=== PATIENT | male | born 1945 | race Caucasian/White ===

== ENCOUNTER 2016-06-30 13:37 | Day surgery (SDC) | payer MEDICARE, BC ==
[2016-06-29 08:24] VITALS: BMI 22.8
[~2016-06-30 13:37] MED LIST: LACTATED RINGERS 1,000 ML IV SCH; SODIUM CHLORIDE 0.9% 1,000 ML IV SCH
[2016-06-30 14:55] LABS: Basophils % (A) 0 %; CH 34.3; CHCM 33.9; Eosinophils # (A) 0.1 k/uL (0-0.7); Eosinophils % (A) 2 %; HCT 41.2 % (39.0-53.0); HDW 2.05; HGB 13.9 gm/dL (13.0-17.5); Luc # (Auto) 0.16; Luc % (Auto) 3; Lymphocytes # (A) 1.5 k/uL (1.0-4.8); Lymphocytes % (A) 26 %; MCH 34.3 pg (25.0-35.0); MCHC 33.8 g/dL (31.0-37.0); MCV 101.5 fL (80.0-100.0); Mean Platelet Volume 9.5; Monocytes # (A) 0.3 k/uL (0-1.0); Monocytes % (A) 6 %; Neutrophils # (A) 3.7 k/uL (1.3-7.7); Neutrophils % (A) 64 %; RBC 4.06 m/uL (4.30-5.90); RDW 12.5 % (11.5-15.5); WBC 5.8 k/uL (3.8-10.6)
[2016-06-30 15:14] LABS: Anion Gap 7 mmol/L; Blood Urea Nitrogen 19 mg/dL (9-20); Calcium 9.4 mg/dL (8.4-10.2); Carbon Dioxide 27 mmol/L (22-30); Chloride 105 mmol/L (98-107); Glucose 87 mg/dL (74-99); Non-African American GFR(MDRD) >60 (>60 ml/min/1.73 sqM); Potassium 4.4 mmol/L (3.5-5.1); Sodium 139 mmol/L (137-145)
[2016-06-30] MEDS ORDERED: fentaNYL (PF) 50 MCG/ML 2 ML AMP ONE (16:16)
[2016-06-30] MEDS ORDERED: GLYCOPYRROLATE 0.2 MG/ML 2 ML VIAL ONE (16:16)
[2016-06-30] MEDS ORDERED: PROPOFOL 10 MG/ML 20 ML VIAL IV ONE (16:16)
[2016-06-30] MEDS ORDERED: ePHEDrine 50 MG/ML 1 ML AMP ONE (16:16)
[2016-06-30] MEDS ORDERED: NEOSTIGMINE 1 MG/ML 10 ML VIAL ONE (16:16)
[2016-06-30] MEDS ORDERED: MIDAZOLAM 2 MG/2 ML VIAL ONE (16:16)
[2016-06-30] MEDS ORDERED: SUCCINYLCHOLINE CHLORIDE 100 MG/5 ML SYR IV ONE (16:16)
[2016-06-30] MEDS ORDERED: ROCURONIUM BROMIDE 10 MG/ML 10 ML VIAL IV ONE (16:16)
[2016-06-30] MEDS ORDERED: ISOPROTERENOL 250 MCG/1.25 ML SYR IV ONE (16:16)
[2016-06-30] MEDS ORDERED: HEPARIN SODIUM (1,000 UNIT/ML) 1,000 UNIT in SODIUM CHLORIDE 0.9% 1,000 ML IRRIGATION ONE (16:34)
[2016-06-30] MEDS ORDERED: LIDOCAINE 2% INJ 20 MG/ML SQ ONE (16:37)
[2016-06-30] MEDS ORDERED: SODIUM CHLORIDE 0.9% 1,000 ML IV ONE (19:02)
[2016-06-30] MEDS ORDERED: ACETAMINOPHEN TAB 325 MG TAB PO PRN (19:09)
[2016-06-30] MEDS ORDERED: HYDROcodone/APAP 5-325MG 1 EACH TAB PO PRN (19:09)
[2016-06-30] MEDS ORDERED: LACTATED RINGERS 1,000 ML IV ONE (19:33)
--- NOTE | 2016-06-30 19:48 | LTR ---
June 30, 2016 RE: Fredy Street Dear Dr. Linder: I had the pleasure of seeing Mr. Fredy Street in electrophysiology follow-up. Fredy underwent successful atrial flutter ablation for symptomatic atrial flutter with RVR. A complete line of block was made with an excellent result. Isthmus conduction time was greater than 185 ms. He will be monitored overnight on telemetry and then be discharged tomorrow and will follow as scheduled. I have asked him to continue with Vanessa for now. Thank you for entrusting me with the care of your patient. Warm regards. Sincerely, HILDA WISE MD
--- NOTE | 2016-06-30 19:52 | PCN ---
DATE OF PROCEDURE: This is a 71-year-old male patient who was admitted with symptomatic atrial flutter with RVR. He was brought in for an atrial flutter ablation procedure. Patient was brought to the EP lab in a fasting state. Written informed consent was obtained prior to the procedure. The procedure was performed under general anesthesia because he has sleep apnea and catheter stability was an issue. The right and left groins were prepped and draped as per protocol. Lidocaine 1% was used for local anesthesia. A venous sheath was placed in the right femoral vein and 2 venous sheaths in the left femoral vein. Via these, diagnostic catheters were placed in the coronary sinus, high right atrium and the His bundle area, and later in the RV. Subsequently a long sheath and a mapping ablation catheter were placed. Sinus cycle length 945 ms, SD interval 131 ms, QRS 104 ms, QT 457 ms, AH 58 ms, HV interval 41 ms. Sinus node recovery times at 600, 500 and 400 ms were 1538, 1153 and 1441 ms. Corresponding corrected sinus node recovery times were within normal limits. AV node Wenckebach block from the high right atrium was 350 ms. No slow pathway conduction. No delta waves. Pacing from the coronary sinus revealed an AV node Wenckebach block cycle length of 340 ms. Isuprel was started wide open. VA Wenckebach block 340 ms. Retrograde conduction in midline and ( ). Atrial extrastimulation was performed from the coronary sinus and from the high right atrium. No ST-T waves reduced. No arrhythmias induced. Three-D electroanatomic mapping of the right atrial isthmus was performed. Intracardiac echocardiography revealed no intracardiac masses in the right and left atria or in the appendages. The isthmus was identified and 3-D mapping of the isthmus was performed. This isthmus had a mid isthmus pedicle which was very thick and almost pedunculated. In addition to this, the eustachian ridge was thick, curled, and had a very narrow but definite subeustachian pouch. Three-D mapping was followed by RF ablation. An RF line of block was made from the tricuspid annulus to the eustachian ridge. The mid isthmus pedicle was ablated. The pouch was also ablated. When the area of the ridge was ablated, there was a jump in the isthmus conduction time to almost 180 to 190 ms. Complete anatomic line of block was made. This was interrogated with differential pacing and with activation mapping as well as with mapping along the RF line. Complete line of block was demonstrated. The isthmus conduction time was greater than 180 to 185 ms in both directions. The anatomic line was complete in 100% grid without any anatomic gaps. Patient tolerated the procedure well without any acute complications. He was extubated and sent to Telemetry. PLAN: Continue Savaysa. Continue metoprolol. Follow up in a week's time for groin check.
[2016-06-30] MEDS ORDERED: ACETAMINOPHEN IV (For NPO) 1,000 MG in EMPTY BAG 1 BAG IVPB ONE (20:00)
[2016-06-30 20:25] VITALS: RESP 16
[2016-06-30] MEDS: LORazepam 0.5 MG TAB PO SCH (21:12)
[2016-06-30] MEDS: FAMOTIDINE 20 MG TAB PO SCH (21:12)
[2016-06-30] MEDS: lamoTRIgine 100 MG TAB PO SCH (21:12)
[2016-07-01 07:42] VITALS: BP 146/77; PULSE 53; TEMP 97.7
--- NOTE | 2016-07-01 08:00 | PN ---
Mr. Street is a 71-year-old male patient who has symptomatic atrial flutter with RVR. He underwent atrial flutter ablation yesterday with demonstration of bidirectional block and isthmus conduction time greater than 180-185 ms. He is doing well this morning. His vitals are stable. Blood pressure is 128/69 mmHg, heart rate is in the 60s, afebrile, 97.8 degrees Fahrenheit. HEENT examination is normal. Heart sounds are normal. Lungs are clear to auscultation. Extremities are warm. No edema. IMPRESSION: 1. Atrial flutter with rapid ventricular rate, symptomatic, status post successful radiofrequency ablation. 2. Age greater than 65 years. At this time it appears this his BAKARI VASC score is 1. I will keep him on anticoagulation for at least 3 months, reassess him and then recalculate his BAKARI VASC score over the next 3 months to determine the duration of anticoagulation. He is on Savaysa 60 mg p.o. daily.
[2016-07-01] MEDS: lamoTRIgine 100 MG TAB PO SCH (08:26)
[2016-07-01] MEDS: FAMOTIDINE 20 MG TAB PO SCH (08:27)
[2016-07-01] MEDS: LORazepam 0.5 MG TAB PO SCH (08:27)
[2016-07-01] MEDS ORDERED: EDOXABAN TOSYLATE 60 MG TABLET PO SCH (09:00)
[2016-07-01] MEDS ORDERED: METOPROLOL SUCCINATE (ER) 50 MG TAB.ER.24H PO SCH (09:00)
== END 2016-07-01 10:40 | disposition home or self-care (01) ==
LOC: CATHEP 13:37 → 3OBS 18:58 → CATHEP 07-01 10:40
PROVIDERS: ATTEND Internal Medicine Clinical Cardiac Electrophysiology
DX: I48.3 Typical atrial flutter (principal); I10 Essential (primary) hypertension; F17.210 Nicotine dependence, cigarettes, uncomplicated; Z79.899 Other long term (current) drug therapy
CPT/HCPCS: 93623; 93662; 93613; 93653; 80048; 85025; C1894; C1769; C1893; C1730 ×3; C1759; C1732; J2001; J2250; J2710; J3010; J1644; J0330; J2704

== ENCOUNTER 2018-01-25 08:47 | Day surgery (SDC) | payer MEDICARE, BC ==
[2018-01-22 15:53] VITALS: BMI 23.7
[~2018-01-25 08:47] MED LIST changes: -LACTATED RINGERS 1,000 ML IV SCH
[2018-01-25 09:22] VITALS: RESP 16; TEMP 97.6
[2018-01-25] MEDS ORDERED: ceFAZolin IN SWFI 2 GM/20 ML SYRINGE IVP ONE (11:59)
[2018-01-25] MEDS ORDERED: SODIUM CHLORIDE 0.9% 1,000 ML IV SCH ×2 (12:00)
[2018-01-25 12:05] VITALS: PULSE 62
--- NOTE | 2018-01-25 12:26 | P.PCN ---
Preoperative Diagnosis: Diagnosis 2 episodes of loss of consciousness both while sitting Twelve-lead ECG shows sinus rhythm normal RI interval narrow QRS normal ST segments heart rate 54 beats a minute, normal QT interval Tilt table test per protocol Baseline blood pressure 159/76. His mercury Baseline heart rate 59 beats a minute patient was tilted upright at an angle of the degrees per protocol there was no significant change in his heart rate or blood pressure and he remained completely asymptomatic throughout procedure impression Mild sinus bradycardia without any AV node blocking drugs Past history of atrial flutter status post successful ablation Hypertension, essential 2 episodes of syncope while sitting with some convulsive activity No evidence for neurocardiogenic syncope or dysautonomia on tilt table testing Plan Implantation of a loop monitor to look for any tachycardia or bradycardia arrhythmias that could result in syncope I had a detailed discussion with the patient and his regarding this regarding the indication for proceeding with loop implantation and the monitoring process are agreeable with the plan
--- NOTE | 2018-01-25 12:29 | P.HPCAR ---
History of Present Illness This is Dr. Briggs dictating an h/p on this patient The patient was interviewed and examined by me IMPRESSION / ASSESSMENT: Recurrent episodes of syncope while sitting, some convulsive movements at that time Hypertension Mild sinus bradycardia and twelve-lead ECG No evidence for dysautonomia or neurocardiogenic syncope on tilt table testing History of atrial flutter status post ablation in the past and on anticoagulation for stroke prevention of this time PLAN: Proceed with implantation of a loop monitor to look for any tachycardia or bradycardia arrhythmias that could explain his loss of consciousness while sitting along with some convulsive-like activity HPI Recurrent syncope while sitting ROS: No fever chills or rigors, no cough, phlegm or expectoration, no nausea, vomiting or diarrhea, no hematuria, dysuria, no musculoskeletal complaints, no strokes or seizures, no skin lesions. EXAMINATION Blood pressure 159/76. His mercury Heart rate 59 beats a minute Normal breath sounds no rhonchi no crackles Normal heart sounds REVIEW OF LABS, ECG Sinus bradycardia 54 beats a minute on twelve-lead ECG Physical Exam Vitals: Vital Signs Temp Pulse Resp BP Pulse Ox 01/25/18 12:03 62 16 187/101 98 01/25/18 09:20 97.6 F 64 16 187/92 95 Intake and Output 01/24/18 01/25/18 01/25/18 22:59 06:59 14:59 Intake Total 40 Balance 40 Intake: IV 40 Sodium Chloride 0.9% 1, 0 000 ml @ 20 mls/hr IV . Q24H [facility] Rx#:[id number] Past Medical History Past Medical History: CVA/TIA, Hearing Disorder / Deafness, Pneumonia, Seizure Disorder, Skin Disorder Additional Past Medical History / Comment(s): FACTOR V; COLITIS, IBS chronic diarrhea; 2 seizures 9 yrs ago & 1 month ago, sleep apnea per spouse, psoriasis , See Dr Briggs's H&P History of Any Multi-Drug Resistant Organisms: None Reported Past Surgical History: Orthopedic Surgery Additional Past Surgical History / Comment(s): colonoscopy, arthroscopy knee surgery, Past Anesthesia/Blood Transfusion Reactions: No Reported Reaction Smoking Status: Former smoker - Past Family History Mother Family Medical History: Cancer Additional Family Medical History / Comment(s): Thyroid CA Physical Examination Vital Signs Temp Pulse Resp BP Pulse Ox 01/25/18 12:03 62 16 187/101 98 01/25/18 09:20 97.6 F 64 16 187/92 95 Intake and Output 01/24/18 01/25/18 01/25/18 22:59 06:59 14:59 Intake Total 40 Balance 40 Intake: IV 40 Sodium Chloride 0.9% 1, 0 000 ml @ 20 mls/hr IV . Q24H [facility] Rx#:[id number] Results Current Medications Generic Name Dose Route Start Last Admin Trade Name Freq PRN Reason Stop Dose Admin Sodium Chloride 1,000 mls @ 20 mls/hr 01/25/18 06:23 01/25/18 09:20 Saline 0.9% IV 40 mls .Q24H [facility] Administration Sodium Chloride 1,000 mls @ 50 mls/hr 01/25/18 12:00 Saline 0.9% IV .Q20H [facility] Sodium Chloride 1,000 mls @ 50 mls/hr 01/25/18 12:00 Saline 0.9% IV .Q20H [facility] Intake and Output 01/24/18 01/25/18 01/25/18 22:59 06:59 14:59 Intake Total 40 Balance 40 Intake: IV 40 Sodium Chloride 0.9% 1, 0 000 ml @ 20 mls/hr IV . Q24H [facility] Rx#:[id number]
[2018-01-25] MEDS ORDERED: MIDAZOLAM 2 MG/2 ML VIAL ONE (12:41)
[2018-01-25] MEDS ORDERED: LIDOCAINE 1% INJ 10MG/ML (20 ML MDV) ONE (12:43)
[2018-01-25] MEDS ORDERED: MIDAZOLAM 2 MG/2 ML VIAL IV ONE (12:46)
[2018-01-25] MEDS ORDERED: IV FLUID CONTINUATION 1,000 ML IV ONE (12:47)
[2018-01-25] MEDS ORDERED: LIDOCAINE 1% INJ 10MG/ML (20 ML MDV) SQ ONE (12:50)
--- NOTE | 2018-01-25 13:04 | P.PCN ---
Preoperative Diagnosis: Loop monitor implant Primary physicians: Dr. Linder [employer] Services: Dr. Bean Indication: Recurrent syncope Patient was brought to the EP lab in a fasting state. Written informed consent was obtained prior to the procedure. The left pectoral area was prepped and draped per protocol. Intravenous antibiotic was administered preoperatively. A subcutaneous Loop monitor was implanted successfully and the wound was closed per protocol. The device was programmed to detect significant jeanette- arrhythmic and tachy-arrhythmic events, per protocol. Device and programming details: Syncope protocol
--- NOTE | 2018-01-25 13:10 | P.PCN ---
Preoperative Diagnosis: Patient underwent EP procedure under conscious sedation/moderate sedation, monitoring of the level of consciousness and physiologic parameters including but not limited to vital signs and oxygenation. Patient tolerated the procedure well without any acute complications. Start time: 1249 Stop time: 1303
[2018-01-25 13:21] VITALS: BP 178/92
== END 2018-01-25 13:37 | disposition home or self-care (01) ==
LOC: CATHEP 08:47
PROVIDERS: ATTEND Internal Medicine Clinical Cardiac Electrophysiology
DX: R55 Syncope and collapse (principal); R00.1 Bradycardia, unspecified; I48.0 Paroxysmal atrial fibrillation; I48.3 Typical atrial flutter; I10 Essential (primary) hypertension; G40.909 Epilepsy, unspecified, not intractable, without status epilepticus; G45.3 Amaurosis fugax; F17.200 Nicotine dependence, unspecified, uncomplicated; Z79.899 Other long term (current) drug therapy; Z79.01 Long term (current) use of anticoagulants; Z86.73 Personal history of transient ischemic attack (TIA), and cerebral infarction without residual deficits
CPT/HCPCS: 33282; 93660; C1764; J2250; J2001; J0690

== ENCOUNTER → 2018-05-03 | Outpatient (CLI) | payer MEDICARE, BC ==
--- NOTE | 2018-05-03 17:32 | CONS ---
CONSULTATION DATE OF SERVICE: 05/03/2018 73-year-old gentleman has been followed in Sleep Center for treatment of obstructive sleep apnea-hypopnea syndrome. Recently patient had diagnostic polysomnogram which showed apnea-hypopnea index 26.4 with oxygen desaturation to 73.2%, and subsequently patient had CPAP titration. During CPAP titration his respiration was on full control even with the low pressure, apnea-hypopnea index was around 0. I discussed results of the sleep study with the patient and family. Subsequently patient was started on treatment with CPAP. Today is his first visit with his CPAP unit after treatment was started. Patient trying to use CPAP equipment every night but originally had a problem with the first mask which was changed to Dream Wear mask. With this mask, the patient feels better but still does not feel fully comfortable. Also opened his mouth. He tried to use chinstrap, but only for 1 night. Pressure in the range 5.8 and average pressure 7.9. Leak is 24 L/minute. Apnea-hypopnea index reading for 1 month in the range of 9 which is high during our titration in the sleep center. Sleep study also showed significant amount of periodic limb movements. The patient continued to have some difficulties to initiate sleep in continued to wake up from sleep. MEDICATIONS: Keppra, losartan, atorvastatin, Xanax. PHYSICAL EXAM: Patient in no distress BP 154/81, HR 68, RR 16, weight 177, temp 98.4, oxygen saturation at room air 95%. Oropharynx showed extremely low position of soft palate, Mallampati 4. Neck Supple, no JVD. Thyroid is not palpable. LUNGS Clear to percussion and to auscultation. Good air exchange. No wheezing or rhonchi. HEART S1, S2 regular. No murmurs, gallops, or rubs. ABDOMEN Soft and nontender. Bowel sounds are present. No organomegaly appreciated. EXTREMITIES No clubbing or cyanosis. 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 Cranial nerves 2 to 7 intact. There is no fasciculation or atrophy. noted. No focal deficits observed. IMPRESSION: 1. Moderate obstructive sleep apnea-hypopnea syndrome; apnea-hypopnea index 26.4 with oxygen saturation 73.2%, improved on CPAP. Patient demonstrated good compliance with treatment benefitting from treatment. 2. Severe periodic limb movements have been documented during diagnostic sleep study. Moderate periodic limb movements during titration. 3. History of atrial fibrillation and atrial flutter. 4. Hypertension. 5. History of epilepsy. 6. History of psoriasis. PLAN: 1. Patient will continue to use CPAP equipment every night for the whole night. 2. I will adjust maximal pressure to 10. 3. I will start the patient on lowest dose of dopaminergic agonist for periodic limb movements. 4. The patient will use chinstrap every night. 5. Precautions related to driving. No driving if feeling sleepiness. Thank you very much for allowing me to participate in management of your patient. Sincerely, Corey De Guzman MD, PhD, FAASM Diplomat of [employer] Portrait Photographer of [facility] [place] MMODL / IJN: [id number] /
== END ==
LOC: SLEEP 14:25
PROVIDERS: ATTEND Internal Medicine
DX: G47.33 Obstructive sleep apnea (adult) (pediatric) (principal); G47.61 Periodic limb movement disorder; I10 Essential (primary) hypertension; G40.909 Epilepsy, unspecified, not intractable, without status epilepticus; Z99.89 Dependence on other enabling machines and devices; Z79.899 Other long term (current) drug therapy; Z87.2 Personal history of diseases of the skin and subcutaneous tissue; Z86.79 Personal history of other diseases of the circulatory system

== ENCOUNTER → 2018-08-02 | Outpatient (CLI) | payer MEDICARE, BC ==
--- NOTE | 2018-08-02 12:22 | SFUN ---
SLEEP CENTER FOLLOW UP NOTE DATE OF SERVICE: 08/02/2018 This 73-year-old gentleman has been followed in sleep center for treatment of obstructive sleep apnea-hypopnea syndrome. Patient continued to use CPAP equipment every night but it has problems related to adjustment of his mask every night he is trying to adjust a different way and now mask, head gear is . I checked CPAP unit, range of the pressure of 5 to 20. Average pressure is 12.7 cm of water, usage 28 out of 30 nights and 21/30 nights more than 4 hours, average 5.5 hours, which is acceptable compliance. Leak 26 L/minute, which is borderline. Apnea-hypopnea index for the last month 5.6, which is acceptable numbers. [place] Sleepiness Scale today is 1. MEDICATIONS: Keppra, losartan, atorvastatin, Xanax, Eliquis. PHYSICAL EXAMINATION: During physical exam, patient in no distress. VITAL SIGNS: BP on the left arm 169/87, HR 68, RR 16, height 6 feet, weight of 178 pounds, body mass index 23, temperature 97.5, oxygen saturation at room air 97%. HEENT: PERRLA, EOMI. Oropharynx low position of soft palate. Mallampati 4. NECK: Supple, no JVD. Thyroid is not palpable. LUNGS: Clear to percussion and to auscultation. Good air exchange. No wheezing or rhonchi. HEART: S1, S2 regular. No murmurs, gallops, or rubs. ABDOMEN: Soft and nontender. Bowel sounds are present. No organomegaly appreciated. EXTREMITIES: No clubbing or cyanosis. 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 Cranial nerves 2 to 7 intact. There is no fasciculation or atrophy. noted. No focal deficits observed. IMPRESSION: 1. Moderate obstructive sleep apnea-hypopnea syndrome; apnea-hypopnea index 26.4 with oxygen saturation of 73.2%. The patient demonstrated good compliance with treatment. Respiration normalized on treatment. 2. The patient has some problem with DreamWear under the nose mask. 3. Severe periodic limb movements have been documented, but presently no clinical symptoms of any leg movements at night. 4. History of atrial fibrillation, atrial flutter. 5. Hypertension. 6. History of epilepsy. 7. History of psoriasis. PLAN: 1. We will fit the patient with the mask. 2. Patient should continue to use CPAP equipment every night for the whole night. 3. Sleep hygiene with regular sleep time for 7-1/2 to 8 hours. 4. No driving if feeling any sleepiness. Thank you very much for allowing me to participate in management of your patient. Sincerely, Corey De Guzman MD, PhD, FAASM Diplomat of [employer] Social Welfare Clerk of [facility] [place] MMODL / IJN: [id number] /
== END | disposition home or self-care (01) ==
LOC: SLEEP 10:37
PROVIDERS: ATTEND Internal Medicine
DX: G47.33 Obstructive sleep apnea (adult) (pediatric) (principal); I48.91 Unspecified atrial fibrillation; I48.92 Unspecified atrial flutter; G40.909 Epilepsy, unspecified, not intractable, without status epilepticus; I10 Essential (primary) hypertension; Z99.89 Dependence on other enabling machines and devices; Z79.02 Long term (current) use of antithrombotics/antiplatelets; Z79.899 Other long term (current) drug therapy; Z87.2 Personal history of diseases of the skin and subcutaneous tissue

== ENCOUNTER → 2022-08-19 | Outpatient (CLI) | payer BC, MEDICARE ==
[2022-08-19 12:46] LABS: African American GFR (CKD) 88 (>60 ml/min/1.73 sqM); Blood Urea Nitrogen 16 mg/dL (9-20); Non-African American GFR(CKD) 76 (>60 ml/min/1.73 sqM)
--- NOTE | 2022-08-19 13:41 | CT ---
EXAMINATION TYPE: CT chest w con DATE OF EXAM: 08/19/2022 COMPARISON: None HISTORY: pneumonia CT DLP: 486.90 mGycm, Automated exposure control for dose reduction was used. CONTRAST: Performed injected with 100 mL of Isovue 300. TECHNIQUE: Axial images were obtained at 5 mm thick sections. Reconstructed images are reviewed on [employer] computer in the coronal plane. FINDINGS: Portion of the thyroid visualized is normal. Emphysematous changes are present through the bilateral lung [place]. Some mild nonspecific pneumoniti s changes are in the bilateral lung [place]. This could be superimposed on some pulmonary fibrosis. Sm all bilateral pleural effusions are present. No enlarged mediastinal or hilar adenopathy is evident. The ascending aorta diameter at the level o f the main pulmonary artery is 3.7 cm. The main pulmonary artery diameter at the bifurcation is 3.[address] sections are obtained through the upper abdomen. Abdomen is essentially unremarkable. IMPRESSIONS: 1. Nonspecific infiltrates in the bilateral lung bases. Differential could include infectious etiolog ies or atelectasis. Underlying neoplasm is not excluded. This could be superimposed on pulmonary fibr osis. Correlate with clinical symptoms and follow-up CT chest in 3 months is recommended.
== END | disposition home or self-care (01) ==
LOC: RADCTMAIN 12:10
PROVIDERS: ATTEND Internal Medicine Critical Care Medicine
DX: J18.9 Pneumonia, unspecified organism (principal); R91.8 Other nonspecific abnormal finding of lung field
CPT/HCPCS: 82565; 84520; 71260; 36415; Q9967

== ENCOUNTER 2022-08-22 06:21 | Day surgery (SDC) | payer BC, MEDICARE ==
[2022-08-19 14:32] VITALS: BMI 22.4
[~2022-08-22 06:21] MED LIST changes: +LACTATED RINGERS 1,000 ML IV SCH; -SODIUM CHLORIDE 0.9% 1,000 ML IV SCH
[2022-08-22] MEDS ORDERED: LACTATED RINGERS 1,000 ML IV ONE (07:15)
[2022-08-22] MEDS ORDERED: fentaNYL (PF) 50 MCG/ML 2 ML AMP ONE (08:07)
[2022-08-22] MEDS ORDERED: GLYCOPYRROLATE 0.2 MG/ML 2 ML VIAL ONE (08:07)
[2022-08-22] MEDS ORDERED: PROPOFOL 10 MG/ML 20 ML VIAL IV ONE (08:07)
[2022-08-22] MEDS ORDERED: MIDAZOLAM 2 MG/2 ML VIAL ONE (08:07)
[2022-08-22] MEDS ORDERED: LIDOCAINE 2% INJ 20 MG/ML (2 ML VIAL) ONE (08:07)
[2022-08-22] MEDS ORDERED: LIDOCAINE 2% INJ 20 MG/ML INTRATRACH ONE (08:22)
--- NOTE | 2022-08-22 08:33 | P.PCN ---
Date of Procedure: 08/22/22 Preoperative Diagnosis: Bilateral pneumonia, lower lobes Postoperative Diagnosis: Aspiration Procedure(s) Performed: Bronchoscopy and the bronchioalveolar lavage of the right lower lobe Anesthesia: MAC Surgeon: Raúl Flynn Estimated Blood Loss (ml): 0 Pathology: other Condition: stable Disposition: same day Operative Findings: Flexible bronchoscopy performed in the bronchoscopy suite. A timeout was done and a consent was obtained. Indication: Lower lobe pulmonary infiltrates, chronic pneumonia, nonspecific findings such as cough and hoarseness Preop diagnosis: Chronic bilateral pneumonia Postoperative diagnosis: Chronic bilateral pneumonia/aspiration Findings The flexible bronchoscope was introduced through the left nostril and it was advanced into the upper airway. Examination of posterior pharynx, larynx, epiglottis, arytenoids, vocal cords, and the vallecula yielded respiratory secretions pooling upper airway, surrounding the epiglottis and the cords and extending to the esophagus. No foreign bodies identified. The arytenoids were symmetrical and there was normal vocal cord function and mobility. It was normal abduction and adduction of the vocal cords. A total of 2 mL of 1% lidocaine was applied. Respiratory secretions and upper airway were all suctioned out without any major difficulties. The mucosa looks healthy and there was no lesions identified. Following that, the flexible bronchoscope was introduced into the upper trachea and examination of the tracheobronchial tree was done. We were supposed to secretions throughout the airways most of the lower lobes bilaterally. Therapeutic airway suctioning was done. The airway inspection included the entire trachea, bilateral mainstem bronchi, right upper lobe bronchus, bronchus intermedius, right middle lobe bronchus, right lower lobe bronchus and the various 10 segments on the right and examination of the left side included left mainstem bronchus, left upper lobe and left lower lobe bronchi and the various 8 segments on the left. After the rest or secretions were all suctioned out, a bronchioloalveolar lavage of the right lower lobe posterior segment was done. A total of 10 mL of fluid was aspirated after infusing the airway with 40 mL of saline. No foreign bodies. No endobronchial tumors or lesions. No evidence of any tracheal bronchomalacia. The bronchoscope was removed and the bronchioloalveolar lavage from the right lower lobe was sent for microbial cultures Plan Complete the course of Augmentin 875 mg by mouth twice a day for 10 days Modified barium swallow, suspecting aspiration.
[2022-08-22 08:36] VITALS: RESP 16; TEMP 97.3
[2022-08-22 09:17] VITALS: BP 131/72; PULSE 72
[2022-08-23 08:23] LABS: Appearance,BF Cloudy (Clear); RBC, Body Fluid 1264 (0-2000)
[2022-08-24 14:50] LABS: Nucleated Cells, Body Fluid 208 X 10*3/uL
== END 2022-08-22 09:19 | disposition home or self-care (01) ==
LOC: ORWHC2ENDO 06:21
PROVIDERS: ATTEND Internal Medicine Critical Care Medicine
DX: J69.0 Pneumonitis due to inhalation of food and vomit (principal); J44.9 Chronic obstructive pulmonary disease, unspecified; I10 Essential (primary) hypertension; E78.5 Hyperlipidemia, unspecified; G47.33 Obstructive sleep apnea (adult) (pediatric); Z86.73 Personal history of transient ischemic attack (TIA), and cerebral infarction without residual deficits; F41.9 Anxiety disorder, unspecified; Z87.19 Personal history of other diseases of the digestive system; D68.51 Activated protein C resistance; Z79.01 Long term (current) use of anticoagulants; Z79.899 Other long term (current) drug therapy
CPT/HCPCS: 88108; 88305; 89050; 87252; 87070; 87205; 87116; 87102; 87206; 31624; J2001 ×2; J2250; J3010; J2704

== ENCOUNTER → 2023-07-29 | Outpatient (CLI) | payer MEDICARE ==
--- NOTE | 2023-07-30 07:37 | MR ---
EXAMINATION TYPE: MR cervical spine wo/w con DATE OF EXAM: 07/29/2023 12:03 PM CLINICAL INDICATION:Male, 78 years old with history of M54.81 OCCIPITAL NEURALGIA; PHH, Neck pain, hi story of surgery. COMPARISON: None. TECHNIQUE: Multi planar, multi sequence imaging was performed utilizing: T1-weighted, T2-weighted, an d turbo inversion recovery imaging of the cervical spine. IV Contrast: 8 cc Gadavist (none if empty) FINDINGS: Alignment: The cervical vertebral bodies have preserved heights. Alignment is within normal limits gi nicho patient positioning. Bones: Fixation hardware along the anterior cervical spine from C3-C7. Bone signal is within normal l imits. No abnormal bone marrow edema on inversion recovery sequences. Cord: Increased cord signal at C5 thought to be a chronic basis. The spinal cord is unremarkable with regards to their signal intensity and morphology. Discs: Intervertebral disc signal is maintained. C2-C3: A disc osteophyte complex is present with moderate to severe spinal canal stenosis. No neural foraminal stenosis. C3-C4: No significant disc pathology. The spinal canal is patent. No neural foraminal stenosis. C4-C5: No significant disc pathology. The spinal canal is patent. Bilateral facet and uncovertebral joint arthropathy are present with moderate right and mild/moderate left neural foraminal stenosis. C5-C6: No significant disc pathology. The spinal canal is patent. Bilateral facet and uncovertebral joint arthropathy are present with mild to moderate bilateral neural foraminal stenosis. C6-C7: No significant disc pathology. The spinal canal is patent. No neural foraminal stenosis. C7-T1: A disc osteophyte complex is present which minimally narrows the ventral subarachnoid space. No neural foraminal stenosis. Other: None. IMPRESSION: 1. C2-C3 moderate to severe spinal canal stenosis. 2. Multilevel degeneration changes with postsurgical changes, no other areas of high-grade spinal can al stenosis. 3. No foraminal stenosis worse at C5-C6 bilaterally and right C4-C5
== END | disposition home or self-care (01) ==
LOC: RADMRIMAIN 10:21
PROVIDERS: ATTEND Psychiatry & Neurology Neurology
DX: M48.02 Spinal stenosis, cervical region (principal); M50.30 Other cervical disc degeneration, unspecified cervical region; M54.81 Occipital neuralgia
CPT/HCPCS: 72156; A9585

== ENCOUNTER → 2024-01-17 | Outpatient (CLI) | payer MEDICARE ==
--- NOTE | 2024-01-18 08:26 | US ---
EXAMINATION TYPE: US arterial LE single level DATE OF EXAM: 01/17/2024 9:38 AM COMPARISONS: None. CLINICAL INDICATION: Male, 78 years old with history of I73.9 PVD; Leg pain TECHNIQUE: Systolic pressures were taken of the upper and lower extremity arteries with ankle-brachia l indices and toe brachial indices calculated bilaterally. History of: Smoker: prior Hypertension: Yes Diabetic: No Hyperlipidemia: No TIA/CVA: TIA Previous Vascular Surgery: No CAD: No SC: No Vascular Ulcers: No Claudication: No Gangrene: No FINDINGS: Doppler Waveforms: Right: Multiphasic Left: Multiphasic Brachial Artery systolic pressure: Right: 129 Left: 133 Posterior Tibial artery systolic pressure: Right: 201 Left: 173 Dorsalis Pedis artery systolic pressure: Right: 151 Left: 161 Ankle-Brachial Indices: Right: 1.5 Left: 0.3 (Vessel hardening > 1.4; Normal 0.9 - 1.4, Moderate 0.7 - 0.9, Severe 0.5-0.7) increased ratios may be attributed to vessel hardening IMPRESSION: Severe vessel hardening suspected the lower left extremity. Muscle hardening also suspected on the ri ght. [facility], , 01/18/2024 8:23 AM
== END | disposition home or self-care (01) ==
LOC: RADUSWWP 09:13
PROVIDERS: ATTEND Family Medicine
DX: I73.9 Peripheral vascular disease, unspecified (principal)
CPT/HCPCS: 93922

== ENCOUNTER → 2024-03-26 | Outpatient (CLI) | payer MEDICARE ==
[2024-03-26 13:09] LABS: African American GFR (CKD) 74 (>60 ml/min/1.73 sqM); Blood Urea Nitrogen 18 mg/dL (9-20); Non-African American GFR(CKD) 64 (>60 ml/min/1.73 sqM)
--- NOTE | 2024-03-26 13:47 | CT ---
CT chest with contrast HISTORY: Pneumonitis due to inhalation of food COMPARISON: 08/19/2022 TECHNIQUE: Multiple axial images were obtained through the thorax following IV contrast material. Findings there is diffuse underlying interstitial density throughout both lungs essentially unchanged compared to the prior study. There is a focal area of partially consolidative and interstitial opaci ty in the left lower lobe is mildly less prominent in the interval. Decrease in size from 4.5 to 3.7 cm in greatest dimension. There is a stable 3 to 4 mm nodules in the right middle lobe. There is no n ew or suspicious lung mass or nodule. There are stable small bilateral pleural effusions. There is no pneumothorax. Pulmonary artery is dilated to 3.8 cm in combination with the diffuse interstitial changes raises the question of pulmonary hypertension due to pulmonary fibrosis. There is moderate to marked cardiomegaly. The ascending thoracic aorta is nondilated. There is no mediastinal, hilar or axillary adenopathy. Limited scanning through the upper abdomen reveals no gross abnormality. No focal osseous lesions are seen. IMPRESSION: 1. Stable diffuse fine interstitial changes throughout both lungs. The findings are consistent with p ulmonary fibrosis. 2. 3.8 cm dilatation of the main pulmonary artery and in combination with diffuse pulmonary fibrosis is the question of pulmonary hypertension. Correlation is recommended 3. Moderate to marked cardiomegaly. 4. Small bilateral pleural effusions. 5. Mildly decreased left lower lobe focal opacity which is a combination of interstitial and consolid ative changes as described above. 6. No acute abnormalities with no interval change compared to previous. [facility], , 03/26/2024 1:45 PM
== END | disposition home or self-care (01) ==
LOC: RADCTMAIN 11:59
PROVIDERS: ATTEND Internal Medicine
DX: J69.0 Pneumonitis due to inhalation of food and vomit (principal); J84.10 Pulmonary fibrosis, unspecified; J90 Pleural effusion, not elsewhere classified; J84.9 Interstitial pulmonary disease, unspecified; R91.8 Other nonspecific abnormal finding of lung field; I51.7 Cardiomegaly
CPT/HCPCS: 82565; 84520; 71260; 36415; Q9967

== ENCOUNTER 2024-05-06 09:13 | Day surgery (SDC) | payer MEDICARE ==
[2024-05-06] MEDS: SODIUM CHLORIDE 0.9% 1,000 ML IV SCH (09:25)
[2024-05-06] MEDS: IV FLUID CONTINUATION 1,000 ML IV ONE (09:26)
[2024-05-06 09:36] VITALS: RESP 16; TEMP 97.7
[2024-05-06 10:09] LABS: African American GFR (CKD) 58 (>60 ml/min/1.73 sqM); Anion Gap 12 mmol/L; Blood Urea Nitrogen 20 mg/dL (9-20); Calcium 9.7 mg/dL (8.4-10.2); Carbon Dioxide 27 mmol/L (22-30); Chloride 94 mmol/L (98-107); Glucose 111 mg/dL (74-99); Non-African American GFR(CKD) 50 (>60 ml/min/1.73 sqM); Potassium 4.6 mmol/L (3.5-5.1); Sodium 133 mmol/L (137-145)
[2024-05-06] MEDS ORDERED: PROPOFOL 10 MG/ML 20 ML VIAL IV ONE (10:55)
--- NOTE | 2024-05-06 10:58 | P.HPCAR ---
History of Present Illness This is Dr. Briggs dictating an H/P on this patient The patient was interviewed and examined IMPRESSION / ASSESSMENT: Persistent atrial fibrillation, symptomatic Shortness of breath with minimal exertion, poor activity tolerance Aspiration pneumonitis in January Ongoing silent aspiration based upon recent swallow study Hypertensive heart disease with diastolic failure Elevated RVSP Valvular heart disease with moderate to severe tricuspid regurgitation, moderate MR moderate AI Stage III chronic kidney disease GFR 58 On prednisone for psoriatic arthritis PLAN: Consider Farxiga in place of Lasix for diastolic heart failure Continue valsartan 160 mg p.o. twice daily Continue Eliquis Electrical cardioversion today for atrial fibrillation HPI Patient remains very short of breath with minimal exertion. He has a history of atrial flutter and then he developed atrial fibrillation which has persisted after his aspiration pneumonitis. He takes prednisone for psoriatic arthritis He has ongoing silent aspiration pneumonitis ROS: No fever chills or rigors, no cough, phlegm or expectoration, no nausea, vomiting or diarrhea, no hematuria, dysuria, no musculoskeletal complaints, no strokes or seizures, no skin lesions. EXAMINATION: Breath sounds are reduced bilaterally but there are no rhonchi no crackles Heart sounds irregular no murmurs No lower extremity edema No JVD Patient is lying flat comfortably but he states that when he walks he is very short of breath REVIEW OF LABS, ECG & MEDICAL DATA Sodium 133 potassium 4.6 BUN 20 and creatinine 1.4 GFR 58 Physical Exam Vitals: Vital Signs Temp Pulse Resp BP Pulse Ox 05/06/24 09:34 97.7 F 111 H 16 135/89 99 Intake and Output 05/05/24 05/06/24 05/06/24 22:59 06:59 14:59 Other: Weight 75.7 kg Past Medical History Past Medical History: Atrial Fibrillation, COPD, CVA/TIA, Deep Vein Thrombosis (DVT), Hearing Disorder / Deafness, Hyperlipidemia, Pneumonia, Seizure Disorder, Skin Disorder, Sleep Apnea/CPAP/BIPAP Additional Past Medical History / Comment(s): FACTOR V; COLITIS, IBS; one seizure 9 yrs ago, chronic diarrhea, sleep apnea per spouse, psoriasis, TIA See dr Briggs's H & P History of Any Multi-Drug Resistant Organisms: None Reported Past Surgical History: Hernia Repair, Orthopedic Surgery Additional Past Surgical History / Comment(s): colonoscopy, arthroscopy knee surgery, Past Anesthesia/Blood Transfusion Reactions: No Reported Reaction Additional Past Anesthesia/Blood Transfusion Reaction / Comment(s): No blood transfusion Smoking Status: Former smoker - Past Family History Mother Family Medical History: Cancer Additional Family Medical History / Comment(s): Thyroid CA Physical Examination Vital Signs Temp Pulse Resp BP Pulse Ox 05/06/24 09:34 97.7 F 111 H 16 135/89 99 Intake and Output 05/05/24 05/06/24 05/06/24 22:59 06:59 14:59 Other: Weight 75.7 kg Results 05/06/24 09:21 Comprehensive Metabolic Panel 05/06/24 Range/Units 09:21 Sodium 133 L (137-145) mmol/L Potassium 4.6 (3.5-5.1) mmol/L Chloride 94 L (98-107) mmol/L Carbon Dioxide 27 (22-30) mmol/L BUN 20 (9-20) mg/dL Creatinine 1.35 H (0.66-1.25) mg/dL Glucose 111 H (74-99) mg/dL Calcium 9.7 (8.4-10.2) mg/dL Current Medications Generic Name Dose Route Start Last Admin Trade Name Freq PRN Reason Stop Dose Admin Sodium Chloride 1,000 mls @ 20 mls/hr 05/06/24 06:35 05/06/24 09:25 Saline 0.9% IV 06/05/24 06:34 20 mls/hr .Q24H ENOCH Administration Lactated Ringer's 1,000 mls @ 20 mls/hr 05/06/24 06:35 Lactated Ringers IV 06/05/24 06:34 .Q24H ENOCH Intake and Output 05/05/24 05/06/24 05/06/24 22:59 06:59 14:59 Other: Weight 75.7 kg Patient Weight 05/07/24 06:59 Weight 75.7 kg 05/06/24 09:21
--- NOTE | 2024-05-06 11:55 | P.EPPROC ---
- EP Procedure Note Electrophysiology Procedure Note: Diagnosis Persistent atrial fibrillation with RVR Underlying sick sinus syndrome Bilateral interstitial changes throughout both lung [place] on CT scan consistent with pulmonary fibrosis, pulmonary hypertension Moderate to severe tricuspid regurgitation Details Successful electrical cardioversion to sinus rhythm A 200 J shock was successful in converting the patient to sinus rhythm Following that twelve-lead EKG showed sinus mechanism heart rate 57 beats a minute normal [place] narrow QRS
--- NOTE | 2024-05-06 12:00 | P.PN ---
Progress Note - Text Progressive shortness of breath Persistent atrial fibrillation refractory to therapy Psoriatic arthritis on treatment including steroids Moderate AI moderate MR Suggest Outpatient reevaluation of cardiac structure and function and ischemia workup Lexiscan Cardiolite stress test 2D echo and Doppler study to assess cardiac structure and function
[2024-05-06 12:53] VITALS: BP 117/67
[2024-05-06 12:58] VITALS: PULSE 65
== END 2024-05-06 12:31 | disposition home or self-care (01) ==
LOC: OR 09:13
PROVIDERS: ATTEND Internal Medicine Clinical Cardiac Electrophysiology
DX: I48.19 Other persistent atrial fibrillation (principal); I49.5 Sick sinus syndrome; I27.20 Pulmonary hypertension, unspecified; I07.1 Rheumatic tricuspid insufficiency; E78.5 Hyperlipidemia, unspecified; J84.10 Pulmonary fibrosis, unspecified; L40.50 Arthropathic psoriasis, unspecified; G40.909 Epilepsy, unspecified, not intractable, without status epilepticus; J44.9 Chronic obstructive pulmonary disease, unspecified; K58.9 Irritable bowel syndrome, unspecified; G47.30 Sleep apnea, unspecified; H91.90 Unspecified hearing loss, unspecified ear; I13.0 Hypertensive heart and chronic kidney disease with heart failure and stage 1 through stage 4 chronic kidney disease, or unspecified chronic kidney disease; I50.30 Unspecified diastolic (congestive) heart failure; N18.30 Chronic kidney disease, stage 3 unspecified; Z79.01 Long term (current) use of anticoagulants; Z86.718 Personal history of other venous thrombosis and embolism; Z86.73 Personal history of transient ischemic attack (TIA), and cerebral infarction without residual deficits; Z87.01 Personal history of pneumonia (recurrent); Z87.891 Personal history of nicotine dependence; Z99.89 Dependence on other enabling machines and devices; Z98.890 Other specified postprocedural states; Z79.899 Other long term (current) drug therapy
CPT/HCPCS: 92960; 80048; 84443; J2704